=== PATIENT | female | born 1950 | race Caucasian/White ===

== ENCOUNTER → 2017-03-22 | Outpatient (CLI) | payer OTHER ==
--- NOTE | 2017-03-22 13:19 | RAD ---
EXAM: Right shoulder 3 views. HISTORY: Right shoulder pain. COMPARISON: None. FINDINGS: Acromioclavicular osteoarthritis is mild. There is mild lateral acromial downsloping. Glenohumeral joint spaces and alignment appear maintained. No fractures are identified. IMPRESSION: 1. Mild acromioclavicular osteoarthritis. Lateral acromial downsloping. Correlate for impingement.
== END | disposition home or self-care (01) ==
LOC: RAD 11:15
PROVIDERS: ATTEND Nurse Practitioner Family
DX: M19.011 Primary osteoarthritis, right shoulder (principal)
CPT/HCPCS: 73030